=== PATIENT | female | born 1995 | race African-American/Black ===

== ENCOUNTER 2021-06-06 01:37 | Emergency (ER) | payer SELFPAY ==
[~2021-06-06] VITALS: Ht 167.6 cm; Wt 72.6 kg
[2021-06-06] MEDS ORDERED: CEFTRIAXONE 1 GM VIAL IM ONE (02:00)
[2021-06-06] MEDS ORDERED: IBUPROFEN 200 MG TAB PO ONE (02:00)
[2021-06-06] MEDS ORDERED: PREDNISONE 20 MG TAB PO ONE (02:00)
[2021-06-06] MEDS ORDERED: ACETAMINOPHEN500 MG PO (02:04)
[2021-06-06] MEDS ORDERED: AMOXICILLIN500 MG PO (02:04)
[2021-06-06] MEDS ORDERED: IBUPROFEN IB200 MG PO (02:04)
[2021-06-06] MEDS ORDERED: IBUPROFEN 600 MG TAB ONE (02:13)
== END 2021-06-06 02:40 | disposition home or self-care (01) ==
LOC: FSED 01:56
DX: J02.0 Streptococcal pharyngitis (principal); R05.9 Cough, unspecified
CPT/HCPCS: 99283; J0696; J7512

== ENCOUNTER 2021-07-05 16:08 | Emergency (ER) | payer SELFPAY ==
[~2021-07-05] VITALS: Ht 157.5 cm; Wt 2.3 kg
[~2021-07-05 16:08] MED LIST: ACETAMINOPHEN500 MG PO; AMOXICILLIN500 MG PO; IBUPROFEN IB200 MG PO
[2021-07-05] MEDS ORDERED: TETRACAINE HCL 0.5% OPTH SOLN 4 ML BTL ONE (16:35)
[2021-07-05] MEDS ORDERED: TETRACAINE HCL 0.5% OPTH SOLN 4 ML BTL OP ONE (16:45)
[2021-07-05] MEDS ORDERED: FLUORESCEIN SOD(OPTH) 1 MG STRP OP ONE (16:45)
[2021-07-05] MEDS ORDERED: ERYTHROMYCIN (OPTH) 3.5 GM OINT OP ONE ×2 (16:45→16:49)
[2021-07-05] MEDS ORDERED: TOBREX5 ML OD (16:52)
[2021-07-05] MEDS ORDERED: CYCLOPENTOLATE H2 ML OD (16:54)
== END 2021-07-05 17:06 | disposition home or self-care (01) ==
LOC: FSED 16:23
DX: T15.01XA Foreign body in cornea, right eye, initial encounter (principal); S00.251A Superficial foreign body of right eyelid and periocular area, initial encounter; J45.909 Unspecified asthma, uncomplicated
CPT/HCPCS: 99283